=== PATIENT | female | born 1970 | race Caucasian/White ===

== ENCOUNTER 2017-01-03 09:13 | Emergency (ER) | payer MEDICAID ==
[2017-01-03 09:37] VITALS: BP 167/114
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
== END 2017-01-03 12:10 | disposition home or self-care (01) ==
LOC: MERGE 09:13 → JD.ED 09:13
DX: L03.211 Cellulitis of face (principal); L03.221 Cellulitis of neck; L03.313 Cellulitis of chest wall; L03.116 Cellulitis of left lower limb; L03.115 Cellulitis of right lower limb; L03.114 Cellulitis of left upper limb; L02.01 Cutaneous abscess of face; L02.11 Cutaneous abscess of neck; L02.416 Cutaneous abscess of left lower limb; L02.415 Cutaneous abscess of right lower limb; L02.414 Cutaneous abscess of left upper limb; L02.413 Cutaneous abscess of right upper limb; L03.113 Cellulitis of right upper limb; F41.9 Anxiety disorder, unspecified; F17.210 Nicotine dependence, cigarettes, uncomplicated; F32.9 Major depressive disorder, single episode, unspecified; Z87.440 Personal history of urinary (tract) infections; Z87.820 Personal history of traumatic brain injury; Z79.899 Other long term (current) drug therapy; Z88.8 Allergy status to other drugs, medicaments and biological substances
CPT/HCPCS: 87070; 87077; 87186; 99283

== ENCOUNTER 2017-01-31 17:32 | Emergency (ER) | payer MEDICAID ==
[2017-01-31 17:59] VITALS: BP 170/113
[2017-01-31] MEDS ORDERED: Sodium Chloride 0.9% 10 ML Syringe FLUSH PRN (18:14)
--- NOTE | 2017-01-31 19:22 | EDM.PDOC ---
ED HPI GENERAL MEDICAL PROBLEM - General Chief Complaint: Gastrointestinal Problem Stated Complaint: RECTAL BLEEDING Time Seen by Provider: 01/31/17 18:00 Source of Information: Reports: Patient History Limitations: Reports: No Limitations - History of Present Illness INITIAL COMMENTS - FREE TEXT/NARRATIVE: Patient is a 47-year-old female presents ED complaining of flareup of ulcerative colitis. States she's had intermittent bleeding from her rectum for the past month with increasing taking place for the last 2 days. She's had blood clots noted with wiping on the tissue. Pain to the lower abdomen is described as sharp, intermittent, with bloating sensation present. She states his consistent with previous flareups. States last flareup was in 2016 and she was placed on a suppository medication that improved. She is from [place] and just recently moved to [place]. States the bleeding is minimal. Abdomen Pain Score (Numeric/FACES): 5 Left Oral/Mouth Pain Score (Numeric/FACES): 8 - Related Data Allergies Allergy/AdvReac Type Severity Reaction Status Date / Time celecoxib [From Celebrex] Allergy Facial Verified 01/31/17 18:27 Swelling Iodinated Contrast- Oral and Allergy Anaphylactic Verified 01/31/17 18:27 IV Dye Shock [Iodinated Contrast Media - IV Dye] iodine Allergy Anaphylactic Verified 01/31/17 18:27 Shock Home Meds: Home Meds Amitriptyline [Elavil] 25 mg PO BEDTIME 02/22/16 [History] Escitalopram Oxalate 10 mg PO DAILY 01/03/17 [History] Prazosin HCl [Prazosin] 1 cap PO BEDTIME 01/03/17 [History] atoMOXetine HCl [Strattera] 18 mg PO DAILY 01/03/17 [History] hydrOXYzine HCl [Atarax] 1 tab PO DAILY 01/31/17 [History] Past Medical History HEENT History: Reports: Impaired Vision Other HEENT History: wear glasses Gastrointestinal History: Reports: Other (See Below) Other Gastrointestinal History: ulcerative collitis; barrats syndrome Genitourinary History: Reports: Other (See Below), UTI, Recurrent Other Genitourinary History: surgery on ureters 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: Reports: Other (See Below) Other OB/BYN History: ablasion of uterus Musculoskeletal History: Reports: Other (See Below) Other Musculoskeletal History: foot, knee cap, bilateral wrists, collar bone, skull fracture Neurological History: Reports: Brain Injury, Head Trauma, Other (See Below), Speech Problems Other Neuro History: aphasia Psychiatric History: Reports: ADHD, Anxiety, Depression, Suicide Attempt - Past Surgical History GI Surgical History: Reports: Appendectomy, Cholecystectomy Female Surgical History: Reports: Other (See Below), Tubal Ligation Musculoskeletal Surgical History: Reports: Other (See Below) Social & Family History - Family History Family Medical History: Unobtainable - Tobacco Use Smoking Status *Q: Current Every Day Smoker Years of Tobacco use: 30 Packs/Tins Daily: 0.1 - Caffeine Use Caffeine Use: Reports: None - Recreational Drug Use Recreational Drug Use: Yes Drug Use in Last 12 Months: Yes Recreational Drug Type: Reports: Cocaine Recreational Drug Use Frequency: Daily Recreational Drug Last Use: 03/01 ED ROS GENERAL - Review of Systems Review Of Systems: See Below Constitutional: Denies: Fever, Chills, Malaise, Weakness, Diaphoresis, Decreased Appetite HEENT: Reports: Dental Pain (Secondary to recently have tooth pulled.). Denies : Ear Pain, Sinus Problem, Throat Pain, Throat Swelling Respiratory: Denies: Shortness of Breath, Cough, Sputum, Hemoptysis Cardiovascular: Denies: Chest Pain, Dyspnea on Exertion, Palpitations, Syncope GI/Abdominal: Reports: Abdominal Pain, Bloody Stool, Diarrhea. Denies: Constipation, Decreased Appetite, Distension, Hematemesis, Melena, Nausea, Vomiting : Denies: Discharge, Dysuria, Flank Pain, Frequency, Urgency Skin: Reports: Wound ED EXAM, GI/ABD - Physical Exam Exam: See Below Exam Limited By: No Limitations General Appearance: Alert, WD/WN, Anxious Eyes: Bilateral: EOMI Ears: Hearing Grossly Normal Nose: Normal Inspection, Normal Mucosa, No Blood Throat/Mouth: Normal Inspection, Normal Oropharynx, Normal Voice, No Airway Compromise, Other (No concerns for infection.) Head: Atraumatic, Normocephalic Neck: Normal Inspection, Supple, Non-Tender, Full Range of Motion. No: Lymphadenopathy (L), Lymphadenopathy (R) Respiratory/Chest: No Respiratory Distress, Lungs Clear, Normal Breath Sounds, No Accessory Muscle Use, Chest Non-Tender Cardiovascular: Normal Peripheral Pulses, Regular Rate, Rhythm GI/Abdominal Exam: Normal Bowel Sounds, Soft, No Organomegaly, No Distention, No Mass, Tender (Suprapubic region and left lower quadrant) Back Exam: Normal Inspection. No: CVA Tenderness (L), CVA Tenderness (R) Extremities: Normal Range of Motion, Non-Tender, No Pedal Edema, Normal Capillary Refill Neurological: Alert, Oriented, CN II-XII Intact, Normal Cognition, No Motor/ Sensory Deficits Psychiatric: Normal Affect, Anxious Skin Exam: Warm, Dry, Other (Multiple small skin lesions to the lower/upper extremities, chest, and upper back. They're in multiple stages of healing. Appears these are sores that developed the patient has been picking at. There is no signs of infection present. No purulent drainage. No increased warmth, or pain with palpation. She denies any history of MRSA.) Course - Vital Signs Last Recorded V/S: Last Vital Signs Temp 97.3 F 01/31/17 17:45 Pulse 107 H 01/31/17 17:45 Resp 16 01/31/17 17:45 BP 170/113 H 01/31/17 17:45 Pulse Ox 98 01/31/17 17:45 - Orders/Labs/Meds Labs: Laboratory Tests 01/31/17 01/31/17 01/31/17 Range/Units 18:20 18:20 18:20 WBC 8.25 (3.98-10.04) K/mm3 RBC 5.13 (3.98-5.22) M/mm3 Hgb 14.7 (11.2-15.7) gm/L Hct 42.9 (34.1-44.9) % MCV 83.6 (79.4-94.8) fl MCH 28.7 (25.6-32.2) pg MCHC 34.3 (32.2-35.5) g/dl RDW Std Deviation 41.4 (36.4-46.3) fL Plt Count 266 (182-369) K/mm3 MPV 10.0 (9.4-12.3) fl Neut % (Auto) 62.0 (34.0-71.1) % Lymph % (Auto) 25.5 (19.3-51.7) % [place] % (Auto) 10.4 (4.7-12.5) % Eos % (Auto) 1.5 (0.7-5.8) Baso % (Auto) 0.5 (0.1-1.2) % Neut # (Auto) 5.12 (1.56-6.13) K/mm3 Lymph # (Auto) 2.10 (1.18-3.74) K/mm3 [place] # (Auto) 0.86 H (0.24-0.36) K/mm3 Eos # (Auto) 0.12 (0.04-0.36) K/mm3 Baso # (Auto) 0.04 (0.01-0.08) K/mm3 Sodium 143 (136-145) mEq/L Potassium 3.2 L (3.5-5.1) mEq/L Chloride 106 (98-107) mEq/L Carbon Dioxide 26 (21-32) mEq/L Anion Gap 14.2 (5-15) BUN 14 (7-18) mg/dL Creatinine 0.9 (0.55-1.02) mg/dL Est Cr Clr Drug Dosing 79.63 mL/min Estimated GFR (MDRD) > 60 (>60) mL/min BUN/Creatinine Ratio 15.6 (14-18) Glucose 122 H (74-106) mg/dL Calcium 9.5 (8.5-10.1) mg/dL Total Bilirubin 0.6 (0.2-1.0) mg/dL AST 23 (15-37) U/L ALT 39 (14-59) U/L Alkaline Phosphatase 109 (46-116) U/L C-Reactive Protein 0.9 (<1.0) mg/dL C-React Prot High Sens 7.09 mg/L Total Protein 7.0 (6.4-8.2) g/dl Albumin 4.0 (3.4-5.0) g/dl Globulin 3.0 gm/dL Albumin/Globulin Ratio 1.3 (1-2) Meds: Medications Discontinued Medications Generic Name Dose Route Start Last Admin Trade Name Freq PRN Reason Stop Dose Admin Sodium Chloride 10 ml 01/31/17 18:14 01/31/17 18:27 Saline Flush FLUSH 10 ml ASDIRECTED PRN Administration Keep Vein Open - Re-Assessments/Exams Free Text/Narrative Re-Assessment/Exam: 01/31/17 19:20 Patient is wishing to leave AMA. Patient signed AMA forms. Departure - Departure Time of Disposition: 19:21 Disposition: Against Medical Advice 07 Condition: Good Clinical Impression: Abdominal pain, Skin lesions, Blood in stool, History of ulcerative colitis, History of traumatic brain injury, History of drug use disorder - Discharge Information Referrals: PCP,None [Primary Care Provider] - Forms: ED Department Discharge
== END 2017-01-31 19:20 | disposition left against medical advice (07) ==
LOC: JD.ED 17:32
DX: K92.1 Melena (principal); R10.30 Lower abdominal pain, unspecified; Z87.820 Personal history of traumatic brain injury; F17.210 Nicotine dependence, cigarettes, uncomplicated; F41.9 Anxiety disorder, unspecified; F32.9 Major depressive disorder, single episode, unspecified; Z90.49 Acquired absence of other specified parts of digestive tract; Z98.51 Tubal ligation status; Z79.899 Other long term (current) drug therapy; Z88.8 Allergy status to other drugs, medicaments and biological substances; Z91.041 Radiographic dye allergy status
CPT/HCPCS: 36415; 80053; 85025; 86140; 86141; 99283; J7050

== ENCOUNTER 2017-02-11 23:33 | Emergency (ER) | payer MEDICAID ==
[2017-02-11 23:40] VITALS: BP 178/98
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
== END 2017-02-12 01:07 | disposition home or self-care (01) ==
LOC: JD.ED 23:33 → EEVIPCON 23:33 → JD.ED 02-12 01:07
DX: S00.03XA Contusion of scalp, initial encounter (principal); S00.83XA Contusion of other part of head, initial encounter; F41.9 Anxiety disorder, unspecified; F32.9 Major depressive disorder, single episode, unspecified; F17.210 Nicotine dependence, cigarettes, uncomplicated; Z88.8 Allergy status to other drugs, medicaments and biological substances; Z91.041 Radiographic dye allergy status; Z79.899 Other long term (current) drug therapy; Z87.440 Personal history of urinary (tract) infections; Z90.49 Acquired absence of other specified parts of digestive tract; Z98.51 Tubal ligation status; Z98.890 Other specified postprocedural states; Y04.0XXA Assault by unarmed brawl or fight, initial encounter
CPT/HCPCS: 99282; 99284